=== PATIENT | female | born 1945 | race Caucasian/White ===

== ENCOUNTER → 2017-08-28 07:07 | Outpatient (CLI) | payer OTHER, SELFPAY ==
[2017-08-28 09:27] LABS: Add Manual Diff / Slide Review NO; Eosinophils Percent Auto 3.6 % (2-4); Hemoglobin 13.2 g/dL (12.0-16.0); Lymphocytes Percent Auto 35.6 % (25-40); Mean Corpuscular HGB Conc 35.6 % (30-36); Mean Corpuscular Hemoglobin 33.2 PG (26-34); Mean Corpuscular Volume 93.3 fL (80-100); Monocytes Percent Auto 9.5 % (3-14); Neutrophils Absolute Auto 2500 /uL (3000-5900); Neutrophils Percent Auto 50.3 % (50-75); Platelet Count 255 X10^3/uL (150-400); Red Blood Cell Count 3.96 X10^6/uL (4.0-5.2); Red Cell Distribution Width 13.5 % (11.6-14.8)
[2017-08-28 09:44] LABS: Alanine Aminotransferase 26 IU/L (9-52); Albumin 4.3 g/dL (3.5-5.0); Albumin Globulin Ratio 1.3 (1.0-2.8); Alkaline Phosphatase 78 U/L (38-126); Aspartate Aminotransferase 22 IU/L (14-36); BUN Creatinine Ratio 21.4 (6-22); Bilirubin Total 0.5 mg/dL (0.2-1.3); Blood Urea Nitrogen 15 mg/dL (7-17); Calcium 9.3 mg/dL (8.4-10.2); Carbon Dioxide 29 mmol/L (22-32); Chloride 105 mmol/L (98-107); Cholesterol 199 mg/dL (140-199); Estimated Glomerular Filt Rate > 60.0 mL/min (>60); Globulin 3.4 g/dL (1.7-4.1); Glucose 83 mg/dL (80-110); HDL Cholesterol 61 mg/dL (40-60); HEMOLYSIS < 15 (0-50); LDL Cholesterol Calculated 113 mg/dL (<100); Potassium 4.4 mmol/L (3.4-5.1); Sodium 143 mmol/L (137-145); Total Protein 7.7 g/dL (6.3-8.2); Triglycerides 124 mg/dL (35-150)
[2017-08-28 10:43] LABS: TSH w/ Reflex to FT4 5.89 uIU/mL (0.47-4.68)
[2017-08-28 11:12] LABS: Free T4, Direct Thyroxine 1.02 ng/dL (0.78-2.19)
== END ==
PROVIDERS: PCP Family Medicine; Visit Provider Family Medicine
DX: I10 Essential (primary) hypertension (principal); E78.5 Hyperlipidemia, unspecified
CPT/HCPCS: 36415; 80053; 80061; 84439; 84443; 85025

== ENCOUNTER → 2017-08-29 17:04 | Outpatient (CLI) | payer OTHER, SELFPAY ==
--- NOTE | 2017-08-29 17:11 | DI.MRI.S_ITS ---
PROCEDURE: MR LUMBAR SPINE WO CON INDICATIONS: LOW BACK PAIN WITH RADIC TECHNIQUE: Noncontrast sagittal T1 spin echo and T2 fast echo, sagittal STIR, axial T1 and T2 fast spin echo through the lumbar spine. In cases with scoliosis, additional coronal T2 fast spin echo may be performed. COMPARISON: [facility], , L-SPINE WITHOUT CONTRAST, 12/10/2013, 9:38. [facility] [place], CR, SPINE LUMB 2 OR 3VW, 05/05/2014, 8:39. FINDINGS: Image quality: Excellent. Alignment and Curvature: 5 lumbar type vertebral bodies are present by plain films. There is loss of normal lumbar lordosis. Moderate leftward curvature of the lower lumbar spine is present. Bone Marrow: Marrow is of normal overall signal. No acute vertebral body compression fractures. There is moderate reactive signal within the implant adjacent to this L3-L4 intervertebral disc. Mild reactive signal within the endplates adjacent to the L2-L3, L4-L5, and L5-S1 intervertebral discs. Spinal Cord: Conus medullaris terminates at the L1-L2 disc space level. Visualized cord demonstrates normal signal and size. Paraspinous Soft Tissues: No paravertebral masses. L1-L2: Disc desiccation and diffuse disc bulge with increased superimposed left paracentral disc extrusion, extending superiorly within the left anterior epidural space. Bilateral facet hypertrophy. Increased, mild canal stenosis. No foraminal stenosis. L2-L3: Disc desiccation and diffuse disc bulge tear bilateral facet and ligamentum flavum hypertrophy epidural lipomatosis. Mild canal stenosis. Mild foraminal stenosis bilaterally. No change. L3-L4: Disc height loss and desiccation, as well as diffuse disc bulge, with superimposed right far lateral protrusion/osteophyte. Bilateral facet and ligamentum flavum hypertrophy. Mild canal stenosis. Mild right greater than left foraminal stenosis. No change. L4-L5: Disc loss and desiccation, as well as diffuse disc bulge/osteophyte. Bilateral facet and ligamentum flavum hypertrophy. Mild canal stenosis. Moderate right and mild left foraminal stenosis. No change. L5-S1: Disc desiccation and diffuse disc bulge with superimposed broad-based left far lateral protrusion/osteophyte. Bilateral facet and ligamentum flavum hypertrophy. Mild canal stenosis. No right foraminal stenosis. Severe left foraminal stenosis with flattening deformity of the left L5 nerve root within the neural foramen. No change. IMPRESSION: 1. Increased L1-L2 disc extrusion, with consequently increased, mild canal stenosis at L1-L2. 2. 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 Recommend correlation with clinical symptoms to ascertain relevance of this finding. Dictated by: Lauro Haley M.D. on 08/30/2017 at 9:16 Approved by: Lauro Haley M.D. on 08/30/2017 at 9:21
== END ==
PROVIDERS: Family Provider Family Medicine; PCP Family Medicine; Visit Provider Nurse Practitioner Family
DX: M54.5 Low back pain (principal); M51.16 Intervertebral disc disorders with radiculopathy, lumbar region; M48.061 Spinal stenosis, lumbar region without neurogenic claudication
CPT/HCPCS: 72148

== ENCOUNTER → 2017-12-11 11:09 | Outpatient (CLI) | payer OTHER, SELFPAY ==
[2017-12-11 13:10] LABS: Thyroid Stimulating Hormone 2.28 uIU/mL (0.47-4.68)
== END ==
PROVIDERS: Family Provider Family Medicine; PCP Family Medicine; Visit Provider Family Medicine
DX: E03.9 Hypothyroidism, unspecified (principal)
CPT/HCPCS: 36415; 84443

== ENCOUNTER → 2025-02-22 16:51 | Outpatient (CLI) | payer OTHER, SELFPAY ==
--- NOTE | 2025-02-22 16:55 | DI.US.S_ITS ---
PROCEDURE: US PERIPH VENOUS LOW EXTREM RT INDICATIONS: rle swelling/pain TECHNIQUE: Real-time imaging, as well as color and pulse Doppler interrogation, were performed of the lower extremity deep veins from the inguinal ligament to the popliteal fossa, with documentation of the visualized calf veins. COMPARISON: None. FINDINGS: The common femoral, femoral, popliteal, and the visualized calf veins are normally compressible, and free of intraluminal thrombus. Color and pulse Doppler demonstrate normal phasic intraluminal flow. There is normal augmentation response to distal compression maneuver. Lower leg edema is present. IMPRESSION: No findings of lower extremity deep venous thrombosis. Dictated by: Zia Maria M.D. on 02/23/2025 at 2:10 Approved by: Zia Maria M.D. on 02/23/2025 at 2:11
== END ==
LOC: US 16:52
PROVIDERS: Referring Provider Family Medicine; Visit Provider Family Medicine
DX: M79.604 Pain in right leg (principal); M79.89 Other specified soft tissue disorders
CPT/HCPCS: 93971